=== PATIENT | female | born 1955 | race Caucasian/White ===

== ENCOUNTER 2018-06-06 15:28 | Emergency (ER) | payer OTHER ==
[2018-06-06] MEDS: morphine 10 MG INJ IM (17:54)
[2018-06-06] MEDS: ONDANSETRON (ODT) 4 MG TAB ODT (17:54)
== END 2018-06-06 18:43 | disposition home or self-care (01) ==
LOC: FTE 15:28
DX: M54.5 Low back pain (principal); R40.2252 Coma scale, best verbal response, oriented, at arrival to emergency department; R40.2362 Coma scale, best motor response, obeys commands, at arrival to emergency department; R40.2142 Coma scale, eyes open, spontaneous, at arrival to emergency department; I10 Essential (primary) hypertension
CPT/HCPCS: 96372; 99284-25

== ENCOUNTER 2018-10-21 14:05 | Emergency (ER) | payer OTHER ==
[2018-10-21 15:48] LABS: ABNORMAL IP MESSAGE 1; HEMATOCRIT 40.8 % (37.0-47.0); MEAN CORPUSCULAR HEMOGLOBIN 24.9 pg (29.0-33.0); MEAN CORPUSCULAR HGB CONC 31.9 g/dl (32.0-37.0); MEAN CORPUSCULAR VOLUME 78.2 fl (82.0-101.0); MEAN PLATELET VOLUME 9.7 fl (7.4-10.4); PLATELET COUNT 397 10^3/UL (140-415); RED BLOOD COUNT 5.22 10^6/ul (4.20-5.40); RED CELL DISTRIBUTION WIDTH 16.3 % (11.5-14.5)
[2018-10-21 15:48] LABS: WHITE BLOOD COUNT 15.1 10^3/ul (4.8-10.8)
[2018-10-21 15:52] LABS: ADD MAN DIFF? YES; POSITIVE DIFF @See below
[2018-10-21] MEDS: ONDANSETRON 4 MG INJ IV (15:59)
[2018-10-21] MEDS: SOD CHLORIDE 0.9% 1,000 ML IV (15:59)
[2018-10-21] MEDS: KETOROLAC 15 MG INJ IV (16:00)
[2018-10-21] MEDS: INSULIN LISPRO 100 UNIT/ML VIAL SC (16:01)
[2018-10-21 16:07] LABS: ALANINE AMINOTRANSFERASE 21 IU/L (13-69); ALBUMIN 4.2 g/dl (3.3-4.9); ALBUMIN/GLOBULIN RATIO 1.55; ALKALINE PHOSPHATASE 140 IU/L (42-121); ANION GAP 11 (5-13); ASPARTATE AMINO TRANSFERASE 22 IU/L (15-46); BILIRUBIN,INDIRECT 0.3 mg/dl (0-1.1); BILIRUBIN,TOTAL 0.3 mg/dl (0.2-1.3); BLOOD UREA NITROGEN 15 mg/dl (7-20); CARBON DIOXIDE 24 mmol/L (21-31); CHLORIDE 96 mmol/L (97-110); CREATININE 0.65 mg/dl (0.44-1.00); Estimated GFR > 60 mL/min (>60); GLUCOSE 370 mg/dl (70-220); LIPASE 89 U/L (23-300); POTASSIUM 5.3 mmol/L (3.5-5.1); SODIUM 131 mmol/L (135-144); TOTAL PROTEIN 6.9 g/dl (6.1-8.1)
[2018-10-21 16:18] LABS: TROPONIN-I < 0.012 ng/ml (0.000-0.120)
[2018-10-21 16:29] LABS: ANISOCYTOSIS 1+ (0-0); EOSINOPHILS % (M) 2 % (0-7); LYMPHOCYTES #M 3.9 10^3/ul (0.8-2.9); LYMPHOCYTES % (M) 26 % (15-51); MICROCYTOSIS 1+ (0-0); MONOCYTE #M 1.3 10^3/ul (0.3-0.9); MONOCYTES % (M) 9 % (0-11); PLATELET ESTIMATE NORMAL; REACTIVE LYMPHOCYTES #M 2.5 10^3/ul (0.0-0.0); REACTIVE LYMPHOCYTES% (M) 17 % (0-0); SEGMENTED NEUTROPHILS (M) % 46 % (39-77); SMUDGE%M 6 % (0-0)
[2018-10-21] MEDS: ACCU-CHEK XX (16:32)
[2018-10-21 18:16] LABS: ADD UMIC NO; UR ASCORBIC ACID NEGATIVE (NEGATIVE); UR BILIRUBIN (Dip) NEGATIVE (NEGATIVE); UR BLOOD (Dip) NEGATIVE (NEGATIVE); UR CLARITY CLEAR (CLEAR); UR COLOR YELLOW (YELLOW); UR GLUCOSE (Dip) 3+ mg/dL (NEGATIVE); UR KETONES (Dip) NEGATIVE (NEGATIVE); UR LEUKOCYTE ESTERASE (Dip) NEGATIVE Leu/ul (NEGATIVE); UR NITRITE (Dip) NEGATIVE (NEGATIVE); UR SPECIFIC GRAVITY (Dip) 1.021 (1.003-1.030); UR TOTAL PROTEIN (Dip) NEGATIVE (NEGATIVE); UR UROBILINOGEN (Dip) NEGATIVE (NEGATIVE)
== END 2018-10-21 19:06 | disposition home or self-care (01) ==
LOC: E/R 14:05
DX: E11.65 Type 2 diabetes mellitus with hyperglycemia (principal); E86.0 Dehydration; I10 Essential (primary) hypertension; E03.9 Hypothyroidism, unspecified; E66.9 Obesity, unspecified; Z68.35 Body mass index [BMI] 35.0-35.9, adult; Z79.84 Long term (current) use of oral hypoglycemic drugs
CPT/HCPCS: 71045; 80053; 81003; 82962; 83690; 84484; 85025; 87086; 93005; 96372; 96374; 96375; 99285-25

== ENCOUNTER 2018-10-24 13:52 | Emergency (ER) | payer OTHER ==
[2018-10-24] MEDS: ACETAMINOPHEN 500 MG TAB PO (14:47)
== END 2018-10-24 17:01 | disposition home or self-care (01) ==
LOC: FTE 13:52
DX: S00.03XA Contusion of scalp, initial encounter (principal); S50.02XA Contusion of left elbow, initial encounter; I10 Essential (primary) hypertension; W01.198A Fall on same level from slipping, tripping and stumbling with subsequent striking against other object, initial encounter; Y92.9 Unspecified place or not applicable
CPT/HCPCS: 70450; 72100; 72125; 73080-LT; 73080-RT; 99284-25